=== PATIENT | female | born 1970 | race Caucasian/White ===

== ENCOUNTER 2023-07-30 16:45 | Emergency (ER) | payer OTHER ==
[~2023-07-30] VITALS: Ht 165.1 cm; Wt 104.3 kg
[2023-07-30 16:49] VITALS: PULSE 99
[2023-07-30 16:54] VITALS: BP 132/78; TEMP 98.4; O2SAT 96
[2023-07-30] MEDS: BACITRACIN ZINC OINT UDPKT TOP ONE (18:13)
[2023-07-30] MEDS: LIDOCAINE HCL/PF 1% 10 MG/ML 5ML VIAL INFIL ONE (18:13)
[2023-07-30] MEDS ORDERED: BACI28.432 TP (18:33)
[2023-07-30 18:50] VITALS: RESP 16
== END 2023-07-30 18:50 | disposition home or self-care (01) ==
LOC: ER 16:45
DX: S91.201A Unspecified open wound of right great toe with damage to nail, initial encounter (principal); X58.XXXA Exposure to other specified factors, initial encounter; Y93.89 Activity, other specified; Y92.89 Other specified places as the place of occurrence of the external cause; Y99.8 Other external cause status
CPT/HCPCS: 11730; 99284; J3490; Z7610 ×5